=== PATIENT | female | born 1995 | race Caucasian/White ===

== ENCOUNTER 2017-08-24 07:56 | Emergency (ER) | payer OTHER, BC | END 2017-08-24 09:49 | disposition home or self-care (01) | LOC: FTE 07:56 | DX: R05 Cough (principal) | CPT/HCPCS: 71045; 87880; 99284-25 ==

== ENCOUNTER 2018-10-05 11:36 | Emergency (ER) | payer BC ==
[2018-10-05] MEDS: ONDANSETRON (ODT) 4 MG TAB ODT (13:07)
[2018-10-05] MEDS: HYDROCODONE/APAP (5/325) TAB PO (13:08)
[2018-10-05 13:13] LABS: ADD MAN DIFF? NO
[2018-10-05 13:15] LABS: BASOPHILS % 0.6 % (0.0-2.0); EOSINOPHILS # 0.2 10^3/ul (0.0-0.5); EOSINOPHILS % 3.2 % (0.0-7.0); HEMOGLOBIN 14.1 g/dl (12.0-16.0); LYMPHOCYTES # 2.5 10^3/ul (0.8-2.9); LYMPHOCYTES % 35.3 % (15.0-51.0); MEAN CORPUSCULAR HEMOGLOBIN 28.3 pg (29.0-33.0); MEAN CORPUSCULAR HGB CONC 32.8 g/dl (32.0-37.0); MEAN CORPUSCULAR VOLUME 86.2 fl (82.0-101.0); MEAN PLATELET VOLUME 8.6 fl (7.4-10.4); MONOCYTE # 0.4 10^3/ul (0.3-0.9); MONOCYTES % 5.6 % (0.0-11.0); NEUTROPHIL # 3.9 10^3/ul (1.6-7.5); PLATELET COUNT 450 10^3/UL (140-415); RED BLOOD COUNT 4.99 10^6/ul (4.20-5.40); RED CELL DISTRIBUTION WIDTH 13.5 % (11.5-14.5)
[2018-10-05 13:15] LABS: WHITE BLOOD COUNT 7.1 10^3/ul (4.8-10.8)
[2018-10-05 13:22] LABS: ADD UMIC YES; UR ASCORBIC ACID NEGATIVE (NEGATIVE); UR BILIRUBIN (Dip) NEGATIVE (NEGATIVE); UR BLOOD (Dip) 1+ mg/dL (NEGATIVE); UR CLARITY SLIGHTLY CLOUDY (CLEAR); UR COLOR YELLOW (YELLOW); UR GLUCOSE (Dip) NEGATIVE (NEGATIVE); UR KETONES (Dip) NEGATIVE (NEGATIVE); UR LEUKOCYTE ESTERASE (Dip) NEGATIVE Leu/ul (NEGATIVE); UR MUCUS FEW /HPF (NONE SEEN); UR NITRITE (Dip) NEGATIVE (NEGATIVE); UR RBC 2 /HPF (0-5); UR SPECIFIC GRAVITY (Dip) 1.027 (1.003-1.030); UR SQUAMOUS EPITHELIAL CELL FEW /HPF (FEW); UR TOTAL PROTEIN (Dip) NEGATIVE (NEGATIVE); UR UROBILINOGEN (Dip) NEGATIVE (NEGATIVE); UR WBC 2 /HPF (0-5)
[2018-10-05 13:42] LABS: ALANINE AMINOTRANSFERASE 89 IU/L (13-69); ALBUMIN 4.5 g/dl (3.3-4.9); ALBUMIN/GLOBULIN RATIO 1.21; ALKALINE PHOSPHATASE 125 IU/L (42-121); ANION GAP 11 (5-13); ASPARTATE AMINO TRANSFERASE 45 IU/L (15-46); BILIRUBIN,INDIRECT 0.3 mg/dl (0-1.1); BILIRUBIN,TOTAL 0.3 mg/dl (0.2-1.3); BLOOD UREA NITROGEN 12 mg/dl (7-20); CALCIUM 9.4 mg/dl (8.4-10.2); CARBON DIOXIDE 22 mmol/L (21-31); CHLORIDE 107 mmol/L (97-110); CREATININE 0.52 mg/dl (0.44-1.00); Estimated GFR > 60 mL/min (>60); GLUCOSE 95 mg/dl (70-220); POTASSIUM 4.4 mmol/L (3.5-5.1); SODIUM 140 mmol/L (135-144); TOTAL PROTEIN 8.2 g/dl (6.1-8.1)
== END 2018-10-05 15:18 | disposition home or self-care (01) ==
LOC: FTE 15:18
DX: R10.12 Left upper quadrant pain (principal); R11.0 Nausea
CPT/HCPCS: 80053; 81001; 81025; 85025; 99283

== ENCOUNTER 2018-11-03 23:25 | Emergency (ER) | payer BC ==
[2018-11-04] MEDS: SOD CHLORIDE 0.9% 1,000 ML IV (03:20)
[2018-11-04 03:22] LABS: ADD MAN DIFF? NO
[2018-11-04 03:23] LABS: BASOPHIL # 0.1 10^3/ul (0.0-0.1); BASOPHILS % 0.6 % (0.0-2.0); EOSINOPHILS # 0.4 10^3/ul (0.0-0.5); EOSINOPHILS % 4.9 % (0.0-7.0); HEMOGLOBIN 13.4 g/dl (12.0-16.0); LYMPHOCYTES # 3.5 10^3/ul (0.8-2.9); LYMPHOCYTES % 39.6 % (15.0-51.0); MEAN CORPUSCULAR HEMOGLOBIN 28.9 pg (29.0-33.0); MEAN CORPUSCULAR HGB CONC 32.7 g/dl (32.0-37.0); MEAN CORPUSCULAR VOLUME 88.4 fl (82.0-101.0); MEAN PLATELET VOLUME 8.7 fl (7.4-10.4); MONOCYTE # 0.6 10^3/ul (0.3-0.9); MONOCYTES % 6.9 % (0.0-11.0); NEUTROPHIL # 4.3 10^3/ul (1.6-7.5); NEUTROPHILS % 47.8 % (39.0-77.0); PLATELET COUNT 389 10^3/UL (140-415); RED BLOOD COUNT 4.64 10^6/ul (4.20-5.40); RED CELL DISTRIBUTION WIDTH 13.6 % (11.5-14.5)
[2018-11-04 03:23] LABS: WHITE BLOOD COUNT 8.9 10^3/ul (4.8-10.8)
[2018-11-04] MEDS: morphine 4 MG/ML VIAL IV (03:23)
[2018-11-04] MEDS: DEXAMETHASONE 10 MG/ML 1 ML INJ IV (03:24)
[2018-11-04] MEDS: ONDANSETRON 4 MG INJ IV (03:24)
[2018-11-04 03:44] LABS: ALANINE AMINOTRANSFERASE 16 IU/L (13-69); ALBUMIN 4.5 g/dl (3.3-4.9); ALBUMIN/GLOBULIN RATIO 1.21; ALKALINE PHOSPHATASE 102 IU/L (42-121); ANION GAP 14 (5-13); ASPARTATE AMINO TRANSFERASE 22 IU/L (15-46); BILIRUBIN,INDIRECT 0.3 mg/dl (0-1.1); BILIRUBIN,TOTAL 0.3 mg/dl (0.2-1.3); BLOOD UREA NITROGEN 11 mg/dl (7-20); CALCIUM 9.4 mg/dl (8.4-10.2); CARBON DIOXIDE 22 mmol/L (21-31); CHLORIDE 109 mmol/L (97-110); CREATININE 0.61 mg/dl (0.44-1.00); Estimated GFR > 60 mL/min (>60); GLUCOSE 98 mg/dl (70-220); LIPASE 24 U/L (23-300); POTASSIUM 3.9 mmol/L (3.5-5.1); SODIUM 145 mmol/L (135-144); TOTAL PROTEIN 8.2 g/dl (6.1-8.1)
[2018-11-04 04:01] LABS: ADD UMIC YES; UR ASCORBIC ACID NEGATIVE (NEGATIVE); UR BILIRUBIN (Dip) NEGATIVE (NEGATIVE); UR BLOOD (Dip) 1+ mg/dL (NEGATIVE); UR CLARITY SLIGHTLY CLOUDY (CLEAR); UR COLOR YELLOW (YELLOW); UR GLUCOSE (Dip) NEGATIVE (NEGATIVE); UR KETONES (Dip) NEGATIVE (NEGATIVE); UR LEUKOCYTE ESTERASE (Dip) NEGATIVE Leu/ul (NEGATIVE); UR MUCUS MODERATE /HPF (NONE SEEN); UR NITRITE (Dip) NEGATIVE (NEGATIVE); UR RBC 7 /HPF (0-5); UR SPECIFIC GRAVITY (Dip) 1.032 (1.003-1.030); UR SQUAMOUS EPITHELIAL CELL FEW /HPF (FEW); UR TOTAL PROTEIN (Dip) NEGATIVE (NEGATIVE); UR UROBILINOGEN (Dip) NEGATIVE (NEGATIVE); UR WBC 1 /HPF (0-5)
[2018-11-04] MEDS: HYDROCODONE/APAP (5/325) TAB PO (05:13)
== END 2018-11-04 06:08 | disposition home or self-care (01) ==
LOC: FTE 23:25
DX: R10.84 Generalized abdominal pain (principal); R11.10 Vomiting, unspecified
CPT/HCPCS: 36415; 80053; 81001; 81025; 83690; 85025; 96361; 96374; 96375; 99284-25

== ENCOUNTER 2018-12-02 23:31 | Emergency (ER) | payer BC ==
[2018-12-03] MEDS: morphine 2 MG INJ IV ×2 (00:51→01:57)
[2018-12-03] MEDS: FAMOTIDINE 20 MG INJ IV (00:51)
[2018-12-03] MEDS: ONDANSETRON 4 MG INJ IV ×2 (00:51→01:46)
[2018-12-03] MEDS: SOD CHLORIDE 0.9% 1,000 ML IV (00:52)
== END 2018-12-03 02:51 | disposition home or self-care (01) ==
LOC: FTE 23:31
DX: K51.811 Other ulcerative colitis with rectal bleeding (principal)
CPT/HCPCS: 96374; 96375; 96376; 99284-25

== ENCOUNTER → 2018-12-09 | Emergency (ER) | payer BC ==
[2018-12-09] MEDS: HYDROCODONE/APAP (5/325) TAB PO (12:55)
[2018-12-09] MEDS: ONDANSETRON (ODT) 4 MG TAB ODT (12:55)
[2018-12-09] MEDS: DEXAMETHASONE 10 MG/ML 1 ML INJ IM (12:56)
== END | disposition home or self-care (01) ==
LOC: FTE 12:07
DX: K51.911 Ulcerative colitis, unspecified with rectal bleeding (principal)
CPT/HCPCS: 96372; 99284-25

== ENCOUNTER 2019-02-05 14:06 | Emergency (ER) | payer BC ==
[2019-02-05 15:42] LABS: URINE BLOOD (Dip) POC Negative (NEGATIVE); URINE GLUCOSE (Dip) POC Negative (NEGATIVE); URINE KETONES (Dip) POC Trace (NEGATIVE); URINE LEUKOCYTE EST (Dip) POC Negative (NEGATIVE); URINE NITRITE (Dip) POC Negative (NEGATIVE); URINE TOTAL PROTEIN POC Trace (NEGATIVE)
[2019-02-05] MEDS: DEXAMETHASONE 10 MG/ML 1 ML INJ IV (15:53)
[2019-02-05] MEDS: ONDANSETRON 4 MG INJ IV (15:53)
[2019-02-05] MEDS: SOD CHLORIDE 0.9% 1,000 ML IV (15:54)
[2019-02-05] MEDS: morphine 2 MG INJ IV (15:54)
== END 2019-02-05 17:07 | disposition home or self-care (01) ==
LOC: FTE 14:06
DX: K51.911 Ulcerative colitis, unspecified with rectal bleeding (principal)
CPT/HCPCS: 81003; 81025; 96374; 96375; 99284-25

== ENCOUNTER 2019-02-21 13:11 | Emergency (ER) | payer BC ==
[2019-02-21] MEDS: ONDANSETRON 4 MG INJ IV ×2 (17:08→18:30)
[2019-02-21] MEDS: SOD CHLORIDE 0.9% 1,000 ML IV (17:08)
[2019-02-21] MEDS: morphine 4 MG/ML VIAL IV ×2 (17:09→18:30)
[2019-02-21] MEDS: FAMOTIDINE 20 MG TAB PO (18:30)
[2019-02-21] MEDS: LIDOCAINE/MYLANTA 40 ML BTL PO (18:30)
== END 2019-02-21 19:16 | disposition home or self-care (01) ==
LOC: E/R 13:11
DX: K51.911 Ulcerative colitis, unspecified with rectal bleeding (principal)
CPT/HCPCS: 74176; 80053; 81025; 83690; 85025; 86140; 96374; 96375; 96376; 99285-25